=== PATIENT | female | born 1980 | race African-American/Black ===

== ENCOUNTER 2020-05-07 01:07 | Emergency (ER) | payer OTHER ==
[~2020-05-07] VITALS: Ht 170.2 cm; Wt 87.1 kg
[~2020-05-07 01:07] MED LIST: ACETAMINOPHEN-1 EAC1 PO; BIRTH CONTROL
[2020-05-07] MEDS ORDERED: JUNEL FE 1.5-31 EACH PO (01:15)
[2020-05-07 01:50] LABS: ABSOLUTE NEUTROPHILS 4.1 thou/uL (1.4-8.2); EOSINOPHILS 2.9 % (0.0-3.0); HEMATOCRIT 34.3 % (37.0-47.0); HEMOGLOBIN 11.5 gm/dL (12.0-15.0); LYMPHOCYTES 30.1 % (24.0-44.0); MCH 25.9 pg (26.0-34.0); MCHC 33.5 g/dL (28.0-37.0); MCV 77.3 fL (80.0-100.0); PLATELET COUNT 268 thou/uL (150-400); RBC 4.43 mil/uL (4.20-5.00); RDW 14.9 % (10.5-14.5)
[2020-05-07 01:50] LABS: URINE BILIRUBIN NEGATIVE (Negative); URINE BLOOD 1+ (Negative); URINE CLARITY CLEAR; URINE COLOR YELLOW; URINE GLUCOSE-RANDOM* NEGATIVE (Negative); URINE KETONES NEGATIVE (Negative); URINE LEUKOCYTES-REFLEX NEGATIVE (Negative); URINE NITRITE-REFLEX NEGATIVE (Negative); URINE PROTEIN (DIPSTICK) NEGATIVE (Negative); URINE SPECIFIC GRAVITY 1.025 (1.005-1.035)
[2020-05-07 01:58] LABS: CREATININE 0.7 mg/dL (0.6-1.0); MAGNESIUM 1.9 mg/dL (1.8-2.4); POTASSIUM 3.7 mmol/L (3.5-5.1)
[2020-05-07 02:04] LABS: BACTERIA-REFLEX 1-9 Few /HPF (None Seen); CASTS None Seen /LPF (None Seen); CRYSTALS None Seen /LPF (None Seen); MUCUS 0-3 Light strn/LPF (None Seen); SQUAMOUS 0-3 Few /LPF (0-3); URINE RBC 0-2 Rare /HPF (0-2); URINE WBC-REFLEX None Seen /HPF (0-5)
[2020-05-07 02:30] VITALS: BP 140/95
--- NOTE | 2020-05-07 10:45 | EKG ---
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 : 1980 Requested By: Shravan Coronado Order Number: [id number] MD: Juan C Martínez Measurements Intervals [place] Rate: 88 P: 38 IA: 147 QRS: -8 QRSD: 79 T: 17 QT: 381 QTc: 461 Interpretive Statements Sinus rhythm Left ventricular hypertrophy Nonspecific ST segment abnormality Compared to ECG 06/15/2008 16:56:23 Voltage criteria for LVH is now present Electronically Signed On 05-07-2020 10:45:34 [employer] by Juan C Martínez [email or web address] <ELECTRONICALLY SIGNED> By: Juan C Martínez MD, FAC 05/07/20 1045 [id number] Juan C Martínez MD, [facility] /EPI
== END 2020-05-07 02:30 | disposition home or self-care (01) ==
LOC: ER 01:07
PROVIDERS: Emergency Medicine
DX: R42 Dizziness and giddiness (principal); R73.9 Hyperglycemia, unspecified; R07.89 Other chest pain; R05 Cough; I10 Essential (primary) hypertension; E86.0 Dehydration; M54.5 Low back pain; Z79.899 Other long term (current) drug therapy